=== PATIENT | female | born 1985 | race Caucasian/White ===

== ENCOUNTER 2018-10-30 20:20 | Emergency (ER) | payer BC ==
[2018-10-30] MEDS ORDERED: Sodium Chloride 0.9% 1,000 ML IV ONE (20:23)
[2018-10-30] MEDS ORDERED: Ondansetron 4 MG/2 ML SDV IVPUSH ONE (20:23)
--- NOTE | 2018-10-30 20:25 | EDM.PDOC ---
ED HPI GENERAL MEDICAL PROBLEM - General Stated Complaint: PT DIZZY AND LT SIDE OF BODY NUMB Time Seen by Provider: 10/30/18 20:24 Source of Information: Reports: Patient - History of Present Illness INITIAL COMMENTS - FREE TEXT/NARRATIVE: HISTORY AND PHYSICAL: History of present illness: [Patient with history of anxiety and panic presents with dizziness and numbness on left side, states these symptoms began acutely while she was working on her computer she began to feel dizzy with the dizziness she stood up he came more dizzy called caused her to stumble and fall to the left. She states at that point she had an episode of panic and presents as such incident was just prior to arrival She remains dizzy here in the ER but does not have any sensory deficit and full motor neurovascularly intact speech is clear in full sentences, dizziness is worsened by head movement both sitting up and specifically turning head to the left causes more dizziness, dizziness is better but not resolved with lying down. O fever nausea vomiting chills sweats no chest pain shortness breath headache or palpitation no bowel or urine symptoms ] Review of systems: As per history of present illness and below otherwise all systems reviewed and negative. Past medical history: As per history of present illness and as reviewed below otherwise noncontributory. Surgical history: As per history of present illness and as reviewed below otherwise noncontributory. Social history: No reported history of drug or alcohol abuse. Family history: As per history of present illness and as reviewed below otherwise noncontributory. Physical exam: HEENT: Atraumatic, normocephalic, pupils reactive, negative for conjunctival pallor or scleral icterus, mucous membranes moist, throat clear, neck supple, nontender, trachea midline. Lungs: Clear to auscultation, breath sounds equal bilaterally, chest nontender. Heart: S1S2, regular, negative for clicks, rubs, or JVD. Abdomen: Soft, nondistended, nontender. Negative for masses or hepatosplenomegaly. Negative for costovertebral tenderness. Pelvis: Stable nontender. Genitourinary: Deferred. Rectal: Deferred. Extremities: Atraumatic, negative for cords or calf pain. Neurovascular unremarkable. Neuro: Awake, alert, oriented. Cranial nerves II through XII unremarkable. Cerebellum unremarkable. Motor and sensory unremarkable throughout. Exam nonfocal. Diagnostics: [CBC CMP troponin UA hCG Chest [address] no contrast ] Therapeutics: [ liter normal saline bolus ] Zofran 8 mg IV Phenergan 25 mg IV Scopolamine transdermal #10 no refill Impression: Benign positional vertigo Panic history of baseline definitive disposition and diagnosis as appropriate pending reevaluation and review of above. headache Pain Score (Numeric/FACES): 3 - Related Data Allergies Allergy/AdvReac Type Severity Reaction Status Date / Time Iodinated Contrast- Oral and Allergy Other Verified 10/30/18 20:23 IV Dye silver Allergy Rash Verified 10/30/18 20:23 [From Tegaderm AG Mesh] Sulfa (Sulfonamide Allergy Rash Verified 10/30/18 20:23 Antibiotics) Home Meds: Home Meds ALPRAZolam [Xanax] 0.5 mg PO QID PRN 02/23/15 [History] FLUoxetine [PROzac] 60 mg PO DAILY 02/23/15 [History] traMADol [Ultram] 50 mg PO Q6H PRN 02/23/15 [History] Vortioxetine Hydrobromide [Trintellix] 1 tab PO DAILY 10/30/18 [History] tiZANidine [Zanaflex] 4 mg PO DAILY 10/30/18 [History] Past Medical History Other Neuro History: chronic fatigue syndrome - Past Surgical History Other HEENT Surgeries/Procedures: T&A Other Cardiovascular Surgeries/Procedures: "cardio thoracic surgery on collar bone" Other GI Surgeries/Procedures: lap band and removal Other Female Surgeries/Procedures: removal of one ovary with hyst, laproscopic for endometriosis ED ROS GENERAL - Review of Systems Review Of Systems: See Below ED EXAM, GENERAL - Physical Exam Exam: See Below Course - Vital Signs Last Recorded V/S: Last Vital Signs Temp 97.2 F 10/30/18 20:25 Pulse 81 10/30/18 20:25 Resp 18 10/30/18 20:25 BP 166/93 H 10/30/18 20:25 Pulse Ox 97 10/30/18 20:25 - Orders/Labs/Meds Orders: Active Orders 24 hr Category Date Time Status EKG Documentation Completion [RC] STAT Care 10/30/18 20:23 Active Head wo Cont [CT] Stat Exams 10/30/18 20:23 Taken Labs: Laboratory Tests 01/17/19 01/17/19 01/17/19 Range/Units 20:29 20:29 21:35 WBC 9.34 (4.0-11.0) K/uL RBC 4.78 (4.30-5.90) M/uL Hgb 14.5 (12.0-16.0) g/dL Hct 43.0 (36.0-46.0) % MCV 90.0 (80.0-98.0) fL MCH 30.3 (27.0-32.0) pg MCHC 33.7 (31.0-37.0) g/dL RDW Std Deviation 45.3 (28.0-62.0) fl RDW Coeff of Reshma 14 (11.0-15.0) % Plt Count 259 (150-400) K/uL MPV 10.70 (7.40-12.00) fL Neut % (Auto) 57.6 (48.0-80.0) % Lymph % (Auto) 35.2 (16.0-40.0) % [place] % (Auto) 5.8 (0.0-15.0) % Eos % (Auto) 1.2 (0.0-7.0) % Baso % (Auto) 0.2 (0.0-1.5) % Neut # (Auto) 5.4 (1.4-5.7) K/uL Lymph # (Auto) 3.3 H (0.6-2.4) K/uL [place] # (Auto) 0.5 (0.0-0.8) K/uL Eos # (Auto) 0.1 (0.0-0.7) K/uL Baso # (Auto) 0.0 (0.0-0.1) K/uL Nucleated RBC % 0.0 /100WBC Nucleated RBCs # 0 K/uL Sodium 141 (136-145) mmol/L Potassium 4.0 (3.5-5.1) mmol/L Chloride 107 (98-107) mmol/L Carbon Dioxide 29.0 (21.0-32.0) mmol/L BUN 16 (7.0-18.0) mg/dL Creatinine 0.8 (0.6-1.0) mg/dL Est Cr Clr Drug Dosing 106.14 mL/min Estimated GFR (MDRD) > 60.0 ml/min Glucose 104 (74-106) mg/dL Calcium 9.7 (8.5-10.1) mg/dL Total Bilirubin 0.6 (0.2-1.0) mg/dL AST 8 L (15-37) IU/L ALT 14 (14-63) IU/L Alkaline Phosphatase 101 (46-116) U/L Troponin I < 0.050 (0.000-0.056) ng/mL Total Protein 7.5 (6.4-8.2) g/dL Albumin 3.9 (3.4-5.0) g/dL Globulin 3.6 (2.6-4.0) g/dL Albumin/Globulin Ratio 1.1 (0.9-1.6) Urine Color YELLOW Urine Appearance CLEAR Urine pH 6.5 (5.0-8.0) Ur Specific [place] 1.015 (1.001-1.035) Urine Protein NEGATIVE (NEGATIVE) mg/dL Urine Glucose (UA) NEGATIVE (NEGATIVE) mg/dL Urine Ketones NEGATIVE (NEGATIVE) mg/dL Urine Occult Blood NEGATIVE (NEGATIVE) Urine Nitrite NEGATIVE (NEGATIVE) Urine Bilirubin NEGATIVE (NEGATIVE) Urine Urobilinogen 0.2 (<2.0) EU/dL Ur Leukocyte Esterase NEGATIVE (NEGATIVE) Urine HCG, Qual (NEGATIVE) Urine Opiates Screen (NEGATIVE) Ur Oxycodone Screen (NEGATIVE) Urine Methadone Screen (NEGATIVE) Ur Barbiturates Screen (NEGATIVE) Ur Phencyclidine Scrn (NEGATIVE) Ur Amphetamine Screen (NEGATIVE) U Methamphetamines Scrn (NEGATIVE) U Benzodiazepines Scrn (NEGATIVE) U Cocaine Metab Screen (NEGATIVE) U Marijuana (THC) Screen (NEGATIVE) Ethyl Alcohol < 3.0 mg/dL 10/30/18 10/30/18 Range/Units 21:35 21:35 WBC (4.0-11.0) K/uL RBC (4.30-5.90) M/uL Hgb (12.0-16.0) g/dL Hct (36.0-46.0) % MCV (80.0-98.0) fL MCH (27.0-32.0) pg MCHC (31.0-37.0) g/dL RDW Std Deviation (28.0-62.0) fl RDW Coeff of Reshma (11.0-15.0) % Plt Count (150-400) K/uL MPV (7.40-12.00) fL Neut % (Auto) (48.0-80.0) % Lymph % (Auto) (16.0-40.0) % [place] % (Auto) (0.0-15.0) % Eos % (Auto) (0.0-7.0) % Baso % (Auto) (0.0-1.5) % Neut # (Auto) (1.4-5.7) K/uL Lymph # (Auto) (0.6-2.4) K/uL [place] # (Auto) (0.0-0.8) K/uL Eos # (Auto) (0.0-0.7) K/uL Baso # (Auto) (0.0-0.1) K/uL Nucleated RBC % /100WBC Nucleated RBCs # K/uL Sodium (136-145) mmol/L Potassium (3.5-5.1) mmol/L Chloride (98-107) mmol/L Carbon Dioxide (21.0-32.0) mmol/L BUN (7.0-18.0) mg/dL Creatinine (0.6-1.0) mg/dL Est Cr Clr Drug Dosing mL/min Estimated GFR (MDRD) ml/min Glucose (74-106) mg/dL Calcium (8.5-10.1) mg/dL Total Bilirubin (0.2-1.0) mg/dL AST (15-37) IU/L ALT (14-63) IU/L Alkaline Phosphatase (46-116) U/L Troponin I (0.000-0.056) ng/mL Total Protein (6.4-8.2) g/dL Albumin (3.4-5.0) g/dL Globulin (2.6-4.0) g/dL Albumin/Globulin Ratio (0.9-1.6) Urine Color Urine Appearance Urine pH (5.0-8.0) Ur Specific [place] (1.001-1.035) Urine Protein (NEGATIVE) mg/dL Urine Glucose (UA) (NEGATIVE) mg/dL Urine Ketones (NEGATIVE) mg/dL Urine Occult Blood (NEGATIVE) Urine Nitrite (NEGATIVE) Urine Bilirubin (NEGATIVE) Urine Urobilinogen (<2.0) EU/dL Ur Leukocyte Esterase (NEGATIVE) Urine HCG, Qual NEGATIVE (NEGATIVE) Urine Opiates Screen NEGATIVE (NEGATIVE) Ur Oxycodone Screen NEGATIVE (NEGATIVE) Urine Methadone Screen NEGATIVE (NEGATIVE) Ur Barbiturates Screen NEGATIVE (NEGATIVE) Ur Phencyclidine Scrn NEGATIVE (NEGATIVE) Ur Amphetamine Screen NEGATIVE (NEGATIVE) U Methamphetamines Scrn NEGATIVE (NEGATIVE) U Benzodiazepines Scrn NEGATIVE (NEGATIVE) U Cocaine Metab Screen NEGATIVE (NEGATIVE) U Marijuana (THC) Screen NEGATIVE (NEGATIVE) Ethyl Alcohol mg/dL Meds: Medications Discontinued Medications Generic Name Dose Route Start Last Admin Trade Name Freq PRN Reason Stop Dose Admin Sodium Chloride 1,000 mls @ 999 mls/hr 10/30/18 20:23 10/30/18 20:34 Normal Saline IV 10/30/18 21:23 999 mls/hr STAT ONE Administration Ondansetron HCl 8 mg 10/30/18 20:23 10/30/18 20:34 Zofran IVPUSH 10/30/18 20:24 8 mg ONETIME ONE Administration Promethazine HCl 25 mg 10/30/18 22:09 10/30/18 22:20 Phenergan IM 10/30/18 22:10 25 mg ONETIME ONE Administration Departure - Departure Time of Disposition: 22:38 Disposition: Home, Self-Care 01 Condition: Good Clinical Impression: Benign positional vertigo - Discharge Information Additional Instructions: The following information is given to patients seen in the emergency department who are being discharged to home. This information is to outline your options for follow-up care. We provide all patients seen in our emergency department with a follow-up referral. The need for follow-up, as well as the timing and circumstances, are variable depending upon the specifics of your emergency department visit. If you don't have a primary care physician on staff, we will provide you with a referral. We always advise you to contact your personal physician following an emergency department visit to inform them of the circumstance of the visit and for follow-up with them and/or the need for any referrals to a consulting specialist. The emergency department will also refer you to a specialist when appropriate. This referral assures that you have the opportunity for follow-up care with a specialist. All of these measure are taken in an effort to provide you with optimal care, which includes your follow-up. Under all circumstances we always encourage you to contact your private physician who remains a resource for coordinating your care. When calling for follow-up care, please make the office aware that this follow-up is from your recent emergency room visit. If for any reason you are refused follow-up, please contact the [facility] emergency department at and asked to speak to the emergency department charge nurse. - My Orders Last 24 Hours: My Active Orders 10/30/18 20:23 EKG Documentation Completion [RC] STAT Head wo Cont [CT] Stat - Assessment/Plan Last 24 Hours: My Active Orders 10/30/18 20:23 EKG Documentation Completion [RC] STAT Head wo Cont [CT] Stat
[2018-10-30 21:14] LABS: CHLORIDE,CL 107 mmol/L (98-107); SODIUM,NA 141 mmol/L (136-145)
--- NOTE | 2018-10-30 21:50 | CR ---
INDICATION: dizziness TECHNIQUE: Chest 1 view. COMPARISON: 06/25/12 FINDINGS: Cardiovascular and mediastinum: Heart size and vasculature are normal in caliber and appearance. Mediastinum is within normal limits. Lungs and pleural space: Lungs are clear. No sign of infiltrate or mass. No sign of pleural effusion. No pneumothorax. Bones and soft tissues: No significant findings. IMPRESSION: Unremarkable chest. Dictated by: Benjamin Rutledge MD @ 10/30/2018 21:48:53 (Electronically Signed)
[2018-10-30] MEDS ORDERED: Promethazine 25 MG/ML SDV IM ONE (22:09)
[2018-10-30 22:45] VITALS: BP 137/95
--- NOTE | 2018-10-31 12:59 | CT ---
EXAM DATE: 10/30/18 PATIENT'S AGE: 33 Patient: GEMMA MARTINI Facility: [place], [place] Site Site : 1985 Study: CT Head [id number]/17/2019 9:39:07 PM Ordering Physician: PIETER BRADEN Final Report: INDICATION: PAIN CT HEAD WITHOUT CONTRAST TECHNIQUE: Multiple axial CT images were performed through the head without intravenous contrast administration. COMPARISON: No previous studies are currently available for comparison. FINDINGS: No acute intracranial hemorrhage is identified. No extra-axial collections are evident and there is no mass effect or midline shift. Ventricles are normal in size and configuration. Brain parenchyma appears normal with unremarkable zheng-white differentiation. Osseous structures are within normal limits and no fractures are seen. Included portions of the paranasal sinuses and mastoid air cells are normally aerated. IMPRESSION: Normal non-contrast head CT. MARYJO KATHLEEN MD [employer] Dictated by: Caleb Kathleen MD @ 10/30/2018 21:57:42 (Electronic Signature) Report Signed by Proxy. [facility]
== END 2018-10-30 22:51 | disposition home or self-care (01) ==
LOC: MW.ED 20:20
DX: H81.10 Benign paroxysmal vertigo, unspecified ear (principal); Z91.041 Radiographic dye allergy status; Z88.8 Allergy status to other drugs, medicaments and biological substances
CPT/HCPCS: 70450; 71045; 80053; 80305; 81003; 81025; 84484; 85025; 93005; 96361; 96372; 96374; 99285; G0480; J2405; J2550; J7040; 99283

== ENCOUNTER 2019-03-20 07:21 | Day surgery (SDC) | payer BC ==
[~2019-03-20 07:21] MED LIST: Lactated Ringers 1,000 ML IV SCH
[2019-03-20] MEDS ORDERED: Lidocaine 2% 5 ML SDV ONE (08:32)
[2019-03-20] MEDS ORDERED: Propofol 200 MG/20 ML SDV ONE (08:33)
[2019-03-20] MEDS ORDERED: Midazolam 1 MG/ML 2 ML SDV ONE (08:33)
[2019-03-20] MEDS ORDERED: fentaNYL 100 MCG/2 ML SDV ONE (08:33)
--- NOTE | 2019-03-20 09:04 | PCM.PREANE ---
Preanesthetic Assessment - Anesthesia/Transfusion/Family Hx Anesthesia History: Prior Anesthesia Without Reaction Family History of Anesthesia Reaction: No Transfusion History: Prior Transfusion Without Reaction Intubation History: Unknown - Review of Systems General: No Symptoms Pulmonary: No Symptoms Cardiovascular: No Symptoms Gastrointestinal: No Symptoms Neurological: No Symptoms Other: Reports: None - Physical Assessment O2 Sat by Pulse Oximetry: 95 Respiratory Rate: 15 Vital Signs: Last Vital Signs Temp 36.3 C 03/20/19 08:43 Pulse 83 03/20/19 08:43 Resp 15 03/20/19 08:43 BP 154/87 H 03/20/19 08:43 Pulse Ox 95 03/20/19 08:43 Height: 5 ft 10 in Weight: 112.945 kg ASA Class: 2 Mental Status: Alert & Oriented x3 Airway Class: Mallampati = 2 Dentition: Reports: Normal Dentition Thyro-Mental Finger Breadths: 3 Mouth Opening Finger Breadths: 3 ROM/Head Extension: Full Lungs: Clear to Auscultation, Normal Respiratory Effort Cardiovascular: Regular Rate, Regular Rhythm - Allergies Allergies/Adverse Reactions: Allergies Allergy/AdvReac Type Severity Reaction Status Date / Time Iodinated Contrast- Oral and Allergy Other Verified 03/18/19 09:46 IV Dye silver Allergy Rash Verified 03/18/19 09:46 [From Tegaderm AG Mesh] Sulfa (Sulfonamide Allergy Rash Verified 03/18/19 09:46 Antibiotics) - Blood Blood Available: No - Anesthesia Plan Pre-Op Medication Ordered: None - Acknowledgements Anesthesia Type Planned: General Anesthesia Pt an Appropriate Candidate for the Planned Anesthesia: Yes Alternatives and Risks of Anesthesia Discussed w Pt/Guardian: Yes Pt/Guardian Understands and Agrees with Anesthesia Plan: Yes PreAnesthesia Questionnaire HEENT History: Reports: Other (See Below) Other HEENT History: wears glasses/contacts Cardiovascular History: Reports: None Respiratory History: Reports: Asthma (mild), Sleep Apnea Other Respiratory History: has "mild" sleep apnea- used CPAP before bariatric surgery- not now Gastrointestinal History: Reports: GERD, Irritable Bowel Syndrome Genitourinary History: Reports: None 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: Reports: Endometriosis, Musculoskeletal History: Reports: Fibromyalgia Neurological History: Reports: Migraines, Other (See Below) Other Neuro History: chronic fatigue syndrome, hx of motion sickness Psychiatric History: Reports: Anxiety, Depression Endocrine/Metabolic History: Reports: Other (See Below) Other Endocrine/Metabolic History: has Hypoglycemia episodes now, had DM before loosing 60 pounds Hematologic History: Reports: Blood Transfusion(s) Immunologic History: Reports: None Oncologic (Cancer) History: Reports: None Dermatologic History: Reports: None - Infectious Disease History Infectious Disease History: Reports: None - Past Surgical History Head Surgeries/Procedures: Reports: None HEENT Surgical History: Reports: Adenoidectomy, Tonsillectomy Other Cardiovascular Surgeries/Procedures: "cardio thoracic surgery on collar bone" GI Surgical History: Reports: Bariatric Procedure, Cholecystectomy, Hernia, Abdominal, Hernia, Inguinal Other GI Surgeries/Procedures: lap band and removal Female Surgical History: Reports: Breast Biopsy, Section (x3), Hysterectomy Other Female Surgeries/Procedures: removal of one ovary with hyst, laproscopic for endometriosis, x3 Oncologic Surgical History: Reports: Lumpectomy - SUBSTANCE USE Smoking Status *Q: Never Smoker Recreational Drug Use History: Yes Recreational Drug Type: Reports: Marijuana/Hashish - HOME MEDS Home Medications: Home Meds FLUoxetine [PROzac] 20 mg PO DAILY 02/23/15 [History] traMADol [Ultram] 100 mg PO BID PRN 02/23/15 [History] tiZANidine [Zanaflex] 4 mg PO TID PRN 10/30/18 [History] Albuterol Sulfate [Proair Respiclick] 2 puff INH Q4H PRN 03/18/19 [History] Budesonide/Formoterol [Symbicort 160-4.5 MCG] 2 puff INH BID 03/18/19 [History] Vortioxetine Hydrobromide [Trintellix] 20 mg PO DAILY 03/18/19 [History] oxyCODONE 2.5 mg PO Q6H PRN 03/18/19 [History] - CURRENT (IN HOUSE) MEDS Current Meds: Current Medications Lactated Ringer's (Ringers, Lactated) 1,000 mls @ 125 mls/hr IV ASDIRECTED ADRIAN Last Admin: 03/20/19 08:56 Dose: 125 mls/hr Discontinued Medications Fentanyl (Sublimaze) Confirm Administered Dose 100 mcg .ROUTE .STK-MED ONE Stop: 03/20/19 08:34 Lidocaine (Xylocaine-Mpf 2%) Confirm Administered Dose 5 ml .ROUTE .STK-MED ONE Stop: 03/20/19 08:33 Midazolam HCl (Versed 1 Mg/Ml) Confirm Administered Dose 2 mg .ROUTE .STK-MED ONE Stop: 03/20/19 08:34 Propofol (Diprivan 20 Ml) Confirm Administered Dose 200 mg .ROUTE .STK-MED ONE Stop: 03/20/19 08:34
[2019-03-20] MEDS ORDERED: Bupivacaine 0.5% 10 ML SDV ONE (09:48)
[2019-03-20] MEDS ORDERED: Ondansetron 4 MG/2 ML SDV ONE (10:40)
[2019-03-20] MEDS ORDERED: Ketorolac 30 MG/ML SDV ONE ×2 (10:40)
[2019-03-20] MEDS ORDERED: fentaNYL 100 MCG/2 ML SDV IVPUSH PRN (10:47)
[2019-03-20] MEDS ORDERED: Morphine 10 MG/ML Syringe IVPUSH PRN (11:07)
[2019-03-20] MEDS ORDERED: Acetaminophen/HYDROcodone 325-5 MG Tab PO PRN (11:07)
[2019-03-20] MEDS ORDERED: Lactated Ringers 1,000 ML IV SCH (11:15)
--- NOTE | 2019-03-20 11:15 | PCM.OPNOTE ---
- General Post-Op/Procedure Note Date of Surgery/Procedure: 03/20/19 Operative Procedure(s): Incision and drainage of left upper arm abscess with removal of cyst wall Pre Op Diagnosis: Left posterior arm mass Post-Op Diagnosis: Infected inclusion cyst Anesthesia Technique: General LMA (ASA II) Primary Surgeon: Elvin Walker Fluid Replacement, Intraop: 700 EBL in mLs: 5 Surgical Drain/Tube Type: [place] Condition: Good Free Text/Narrative:: DICTATION [id number] CPT CODE 13686
--- NOTE | 2019-03-20 11:15 | PCM.POSTAN ---
POST ANESTHESIA ASSESSMENT - MENTAL STATUS Mental Status: Alert Free Text/Narrative:: Doing well - VITAL SIGNS Pulse Rate: 87 SaO2: 96 Resp Rate: 14 Blood Pressure: 124/69 - RESPIRATORY Respiratory Status: Respiratory Rate WNL - CARDIOVASCULAR CV Status: Pulse Rate WNL - GASTROINTESTINAL GI Status: No Symptoms - PAIN Pain Score: 2 (some soreness) - POST OP HYDRATION Hydration Status: Adequate & Stable (Adequate for transfer to [facility])
--- NOTE | 2019-03-20 11:19 | OR ---
SURGEON: Elvin Walker M.D. DATE OF PROCEDURE: 03/20/2019 OPERATION PERFORMED: Incision and drainage with excision of cyst wall, left upper arm abscess. PRIMARY SURGEON: Elvin Walker M.D. ANESTHESIA: General LMA. ASA CLASSIFICATION: II. PREOPERATIVE DIAGNOSIS: Enlarging symptomatic left upper arm mass. POSTOPERATIVE DIAGNOSIS: Infected inclusion cyst. ESTIMATED BLOOD LOSS: 5 mL. INTRAOPERATIVE FLUID REPLACEMENT: 700 mL of crystalloid. DESCRIPTION OF PROCEDURE: The patient was taken to the operating room and placed on the operating table in the supine position. Time-out was called for appropriate identification of the patient and procedure. Thigh-high TEDs and sequential compression boots were placed. Monitored anesthesia care was provided. MAC anesthesia was provided with placement of an LMA. The left upper extremity was then prepped with ChloraPrep solution. Sterile drapes were applied. The skin incision had been marked out and this was now infiltrated with 0.5% Marcaine solution. The skin was then incised directly over the mass and deepened through the subcutaneous tissue. We then entered an abscess cavity. Aerobic and anaerobic cultures and Gram stain were obtained. The dissection was then carried out removing the entire cyst wall. Once that was accomplished, the wound was inspected for hemostasis and bleeding sites were electrocoagulated. There was no other cyst wall present. The wound again was irrigated with sterile saline solution. A small Markel drain was brought to the operating table and placed into the center portion of the incision and secured to the skin with an 0 silk suture. The incision was then loosely closed with interrupted 3-0 nylon. The wound was then dressed with Telfa, 4x4s, and Mefix tape. Sponge, needle, and instrument counts were all correct. The patient tolerated the procedure well. Following emergence from anesthesia and extubation, she was taken to recovery room in stable condition. JOIE / OCTAVIANO /[id number]
--- NOTE | 2019-03-20 11:49 | PCM48HPAN ---
Post Anesthesia Note - EVALUATION WITHIN 48HRS OF ANESTHETIC Vital Signs in Normal Range: Yes Patient Participated in Evaluation: Yes Respiratory Function Stable: Yes Airway Patent: Yes Cardiovascular Function Stable: Yes Hydration Status Stable: Yes Pain Control Satisfactory: Yes Nausea and Vomiting Control Satisfactory: Yes Mental Status Recovered: Yes Pulse Rate: 87 Resp Rate: 14 Blood Pressure: 124/69 - COMMENTS/OBSERVATIONS Free Text/Narrative:: no anesthesia problems
[2019-03-20 12:17] VITALS: BP 127/75
--- NOTE | 2019-04-08 09:12 | OR ---
SURGEON: Elvin Walker M.D. DATE OF PROCEDURE: 03/20/2019 ADDENDUM: The size of the left upper arm lesion was 4 cm. JOIE / OCTAVIANO /[id number]
== END 2019-03-20 12:14 | disposition home or self-care (01) ==
LOC: MW.SDS 07:21
PROVIDERS: ATTEND Surgery
DX: L02.414 Cutaneous abscess of left upper limb (principal); L72.0 Epidermal cyst; E16.2 Hypoglycemia, unspecified; F41.9 Anxiety disorder, unspecified; F32.9 Major depressive disorder, single episode, unspecified; E66.9 Obesity, unspecified; J45.909 Unspecified asthma, uncomplicated; K21.9 Gastro-esophageal reflux disease without esophagitis; G43.909 Migraine, unspecified, not intractable, without status migrainosus; G47.33 Obstructive sleep apnea (adult) (pediatric); Z99.89 Dependence on other enabling machines and devices; Z91.041 Radiographic dye allergy status; Z88.2 Allergy status to sulfonamides; Z91.048 Other nonmedicinal substance allergy status; Z79.899 Other long term (current) drug therapy; Z98.890 Other specified postprocedural states; Z68.35 Body mass index [BMI] 35.0-35.9, adult
CPT/HCPCS: 11404; 12032; 87070; 87075; 87205; 88305; A9270; J1885; J2001; J2250; J2405; J2704; J3010; J3490; J7120; 00400

== ENCOUNTER 2021-01-12 01:58 | Emergency (ER) | payer OTHER, BC ==
[2021-01-12] MEDS ORDERED: Sodium Chloride 0.9% 10 ML Syringe FLUSH PRN (02:09)
[2021-01-12] MEDS ORDERED: Sodium Chloride 0.9% 2.5 ML Syringe FLUSH PRN (02:09)
[2021-01-12] MEDS ORDERED: Ondansetron 4 MG/2 ML SDV IVPUSH ONE (02:09)
[2021-01-12] MEDS ORDERED: Ketorolac 15 MG/ML SDV IVPUSH ONE (02:09)
[2021-01-12] MEDS ORDERED: Sodium Chloride 0.9% 1,000 ML IV ONE (02:09)
[2021-01-12] MEDS ORDERED: Prochlorperazine 10 MG in Sodium Chloride 0.9% 50 ML IV ONE (02:10)
[2021-01-12] MEDS ORDERED: diphenhydrAMINE 50 MG/ML SDV IVPUSH ONE (02:11)
[2021-01-12] MEDS ORDERED: Prochlorperazine 10 MG/2 ML SDV IVPUSH ONE (02:14)
[2021-01-12] MEDS ORDERED: Prochlorperazine 10 MG/2 ML SDV ONE (02:15)
[2021-01-12 04:01] VITALS: BP 121/71; PULSE 91
--- NOTE | 2021-01-12 04:13 | EDM.PDOC ---
ED HPI GENERAL MEDICAL PROBLEM - General Chief Complaint: Headache Stated Complaint: CIVID COMPLICATION Time Seen by Provider: 01/12/21 02:04 - History of Present Illness INITIAL COMMENTS - FREE TEXT/NARRATIVE: HISTORY AND PHYSICAL: History of present illness: Is a 35-year-old female with no significant past medical history who was recently diagnosed with coronavirus yesterday who presents ER today complaining of headache with nausea and decreased p.o. intake. Patient reports that she went to sleep yesterday at 7 PM and woke up at 10 PM. Patient reports that she has been unable to fall asleep since. Patient denies any recent dysuria, frequency, urgency, abdominal pain, chest pain. Patient reports that she does have a history of migraines and this feels as bad as her prior migraines. Patient reports nausea was decreased p.o. intake and 1 episode of emesis here in the ED. Patient denies any diarrhea. Patient has any double vision or blurred vision. Patient denies any weakness to her upper or lower extremities. Review of systems: As per history of present illness and below otherwise all systems reviewed and negative. Past medical history: As per history of present illness and as reviewed below otherwise noncontributory. Surgical history: As per history of present illness and as reviewed below otherwise noncontributory. Social history: No reported history of drug or alcohol abuse. Family history: As per history of present illness and as reviewed below otherwise noncontributory. Physical exam: This patient was seen and evaluated during the 2019 SARS-CoV-2 novel coronavirus pandemic period. Community viral transmission is ongoing at time of this encounter and the emergency department is operating under pandemic response procedures. Constitutional: Patient is oriented to person, place, and time. Appears well- developed and well-nourished. No distress. HEENT: Moist mucous membranes Head: Normocephalic and atraumatic Eyes: Right eye exhibits no discharge. Left eye exhibits no discharge. No scleral icterus Neck: Normal range of motion. No tracheal deviation present. Neck supple, no nuchal rigidity, no photophobia, no Kernig's sign or Brudzinski sign, patient does not present with signs or symptoms of be consistent with meningitis. Cardiovascular: Normal rate and regular rhythm. Pulmonary: Effort normal, no respiratory distress. Abd: Soft, nondistended, no rebound/guarding, no psoas or obturator signs, no tenderness at Mcberney's point, no West's sign. Pt does not present with an exam that would be consistent with an acute surgical abdomen at this time and to palpation Musculoskeletal: Normal range of motion Neurologic: Alert and oriented to person, place and time. Skin: [place], warm and dry. Psychiatric: Normal mood and affect. Behavior is normal. Judgment and thought content normal. Nursing note and vital signs have been reviewed Diagnostics: Labs reviewed from earlier today Therapeutics: Zofran, Compazine, Toradol, NSS x1 L, Benadryl Assessment and plan: 35-year-old female who presents ER today secondary to headache, nausea, vomiting. Patient was recently diagnosed with coronavirus and is scheduled to return to the hospital for an infusion for her coronavirus. On the ER, the patient was hydrated with NSS x1 L, Toradol, Benadryl, Compazine and Zofran feels 100% much more improved. Patient reports that she is ready to go home. Patient is nontoxic-appearing. Patient does not present with signs or symptoms that would be consistent with meningitis or an acute surgical abdomen. Patient be discharged home with a prescription for Zofran. Reassessment at the time of disposition demonstrates that the patient is in no acute distress. The patient has remained stable throughout the entire ED visit and is without objective evidence for acute process requiring urgent intervention or hospitalization. The patient is stable for discharge, counseling is provided as documented above, discussed symptomatic treatment and specific conditions for return. I have spoken with the patient/caregiver and discussed todays findings, in addition to providing specific details for the plan of care. Questions are answered and there is agreement with the plan. Definitive disposition and diagnosis as appropriate pending reevaluation and review of above. head Pain Score (Numeric/FACES): 8 - Related Data Allergies Allergy/AdvReac Type Severity Reaction Status Date / Time Iodinated Contrast Media Allergy Other Verified 01/12/21 02:12 silver Allergy Rash Verified 01/12/21 02:12 [From Tegaderm AG Mesh] Sulfa (Sulfonamide Allergy Rash Verified 01/12/21 02:12 Antibiotics) Home Meds: Home Meds FLUoxetine [PROzac] 20 mg PO DAILY 02/23/15 [History] traMADol [Ultram] 100 mg PO BID PRN 02/23/15 [History] tiZANidine [Zanaflex] 4 mg PO TID PRN 10/30/18 [History] Albuterol Sulfate [Proair Respiclick] 2 puff INH Q4H PRN 03/18/19 [History] Budesonide/Formoterol [Symbicort 160-4.5 MCG] 2 puff INH BID 03/18/19 [History] Vortioxetine Hydrobromide [Trintellix] 20 mg PO DAILY 03/18/19 [History] oxyCODONE 2.5 mg PO Q6H PRN 03/18/19 [History] Azithromycin 500 mg PO DAILY 01/12/21 [History] Past Medical History HEENT History: Reports: Other (See Below) Other HEENT History: wears glasses/contacts Cardiovascular History: Reports: None Respiratory History: Reports: Asthma, Sleep Apnea Other Respiratory History: has "mild" sleep apnea- used CPAP before bariatric surgery- not now Gastrointestinal History: Reports: GERD, Irritable Bowel Syndrome Genitourinary History: Reports: None 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, Musculoskeletal History: Reports: Fibromyalgia Neurological History: Reports: Migraines, Other (See Below) Other Neuro History: chronic fatigue syndrome, hx of motion sickness Psychiatric History: Reports: Anxiety, Depression Endocrine/Metabolic History: Reports: Other (See Below) Other Endocrine/Metabolic History: has Hypoglycemia episodes now, had DM before loosing 60 pounds Hematologic History: Reports: Blood Transfusion(s) Immunologic History: Reports: None Oncologic (Cancer) History: Reports: None Dermatologic History: Reports: None - Infectious Disease History Infectious Disease History: Reports: None - Past Surgical History Head Surgeries/Procedures: Reports: None HEENT Surgical History: Reports: Adenoidectomy, Tonsillectomy Other Cardiovascular Surgeries/Procedures: "cardio thoracic surgery on collar bone" GI Surgical History: Reports: Bariatric Procedure, Cholecystectomy, Hernia, Abdominal, Hernia, Inguinal Other GI Surgeries/Procedures: lap band and removal Female Surgical History: Reports: Breast Biopsy, Section, Hysterectomy Other Female Surgeries/Procedures: removal of one ovary with hyst, laproscopic for endometriosis, x3 Oncologic Surgical History: Reports: Lumpectomy Social & Family History - Family History Family Medical History: No Pertinent Family History - Tobacco Use Tobacco Use Status *Q: Never Tobacco User - Caffeine Use Caffeine Use: Reports: None - Recreational Drug Use Recreational Drug Use: No ED ROS GENERAL - Review of Systems Review Of Systems: See Below ED EXAM, GENERAL - Physical Exam Exam: See Below Course - Vital Signs Last Recorded V/S: Last Vital Signs Temp 99.9 F 01/12/21 02:05 Pulse 91 01/12/21 04:00 Resp 18 01/12/21 04:00 BP 121/71 01/12/21 04:00 Pulse Ox 95 01/12/21 04:00 - Orders/Labs/Meds Orders: Active Orders 24 hr Category Date Time Status Sodium Chloride 0.9% [Saline Flush] Med 01/12/21 02:09 Active 10 ml FLUSH ASDIRECTED PRN Sodium Chloride 0.9% [Saline Flush] Med 01/12/21 02:09 Active 2.5 ml FLUSH ASDIRECTED PRN Saline Lock Insert [OM.PC] Stat Oth 01/12/21 02:09 Ordered Medication Orders Sodium Chloride (Sodium Chloride 0.9% 10 Ml Syringe) 10 ml FLUSH ASDIRECTED PRN PRN Reason: Keep Vein Open Sodium Chloride (Sodium Chloride 0.9% 2.5 Ml Syringe) 2.5 ml FLUSH ASDIRECTED PRN PRN Reason: Keep Vein Open Meds: Medications Generic Name Dose Route Start Last Admin Trade Name Freq PRN Reason Stop Dose Admin Sodium Chloride 10 ml 01/12/21 02:09 Sodium Chloride 0.9% 10 Ml Syringe FLUSH ASDIRECTED PRN Keep Vein Open Sodium Chloride 2.5 ml 01/12/21 02:09 Sodium Chloride 0.9% 2.5 Ml Syringe FLUSH ASDIRECTED PRN Keep Vein Open Discontinued Medications Generic Name Dose Route Start Last Admin Trade Name Freq PRN Reason Stop Dose Admin Diphenhydramine HCl 50 mg 01/12/21 02:11 01/12/21 02:27 Diphenhydramine 50 Mg/Ml Sdv IVPUSH 01/12/21 02:12 50 mg ONETIME ONE Administration Prochlorperazine Edisylate 10 52 mls @ 150 mls/hr 01/12/21 02:10 01/12/21 02:38 mg/ Sodium Chloride IV 01/12/21 02:30 Not Given ONETIME ONE Sodium Chloride 1,000 mls @ 999 mls/hr 01/12/21 02:09 01/12/21 02:26 Normal Saline IV 01/12/21 03:09 999 mls/hr .Bolus ONE Administration Ketorolac Tromethamine 15 mg 01/12/21 02:09 01/12/21 02:27 Ketorolac 15 Mg/Ml Sdv IVPUSH 01/12/21 02:10 15 mg ONETIME ONE Administration Ondansetron HCl 4 mg 01/12/21 02:09 01/12/21 02:27 Ondansetron 4 Mg/2 Ml Sdv IVPUSH 01/12/21 02:10 4 mg ONETIME ONE Administration Prochlorperazine Edisylate 10 mg 01/12/21 02:14 01/12/21 02:27 Prochlorperazine 10 Mg/2 Ml Sdv IVPUSH 01/12/21 02:15 10 mg ONETIME ONE Administration Prochlorperazine Edisylate Confirm 01/12/21 02:15 01/12/21 02:28 Prochlorperazine 10 Mg/2 Ml Sdv Administered 01/12/21 02:16 Not Given Dose 10 mg .ROUTE .STK-MED ONE Departure - Departure Time of Disposition: 04:10 Disposition: Home, Self-Care 01 Condition: Good Clinical Impression: 2019 novel coronavirus disease (COVID-19), Headache, Migraine, Dehydration - Discharge Information Instructions: COVID-19 Frequently Asked Questions, COVID-19: How to Protect Yourself and Others - CDC, Prevent the Spread of COVID-19 if You Are Sick - CDC, Dehydration, Adult, [id number], General Headache Without Cause Referrals: PCP,None [Primary Care Provider] - Additional Instructions: You were seen and evaluated in the ER today secondary to your headache and nausea which are likely from your coronavirus infection. You have been given IV fluids as well as medication to assist you with your headache and nausea. You will be given a prescription for Zofran to assist you with your nausea. Please make an appointment to follow-up with your doctor in the next 2 to 3 days if your symptoms should persist. The following information is given to patients seen in the emergency department who are being discharged to home. This information is to outline your options for follow-up care. We provide all patients seen in our emergency department with a follow-up referral. The need for follow-up, as well as the timing and circumstances, are variable depending upon the specifics of your emergency department visit. If you don't have a primary care physician on staff, we will provide you with a referral. We always advise you to contact your personal physician following an emergency department visit to inform them of the circumstance of the visit and for follow-up with them and/or the need for any referrals to a consulting specialist. The emergency department will also refer you to a specialist when appropriate. This referral assures that you have the opportunity for follow-up care with a specialist. All of these measure are taken in an effort to provide you with optimal care, which includes your follow-up. Under all circumstances we always encourage you to contact your private physician who remains a resource for coordinating your care. When calling for follow-up care, please make the office aware that this follow-up is from your recent emergency room visit. If for any reason you are refused follow-up, please contact the [facility] Emergency Department at and asked to speak to the emergency department charge nurse. [facility] - Primary Care [address] [place] [address] [place] [address] Sepsis Event Note (ED) - Evaluation Sepsis Screening Result: No Definite Risk - Focused Exam Vital Signs: Vital Signs Temp Pulse Resp BP Pulse Ox 01/12/21 04:00 91 18 121/71 95 01/12/21 02:40 101 H 18 142/94 H 94 L 01/12/21 02:05 99.9 F 114 H 17 141/92 H 97 - My Orders Last 24 Hours: My Active Orders 01/12/21 02:09 Sodium Chloride 0.9% [Saline Flush] 10 ml FLUSH ASDIRECTED PRN Sodium Chloride 0.9% [Saline Flush] 2.5 ml FLUSH ASDIRECTED PRN Saline Lock Insert [OM.PC] Stat - Assessment/Plan Last 24 Hours: My Active Orders 01/12/21 02:09 Sodium Chloride 0.9% [Saline Flush] 10 ml FLUSH ASDIRECTED PRN Sodium Chloride 0.9% [Saline Flush] 2.5 ml FLUSH ASDIRECTED PRN Saline Lock Insert [OM.PC] Stat
== END 2021-01-12 04:30 | disposition home or self-care (01) ==
LOC: MW.ED 01:58
DX: U07.1 COVID-19 (principal); G43.909 Migraine, unspecified, not intractable, without status migrainosus; E86.0 Dehydration; J45.909 Unspecified asthma, uncomplicated; Z91.041 Radiographic dye allergy status; Z88.8 Allergy status to other drugs, medicaments and biological substances; Z88.2 Allergy status to sulfonamides; Z79.899 Other long term (current) drug therapy
CPT/HCPCS: 96374; 96375; 99284; J0780; J1200; J1885; J2405; J7030; 99283

== ENCOUNTER 2021-03-12 12:59 | Emergency (ER) | payer OTHER, BC ==
[2021-03-12] MEDS ORDERED: diphenhydrAMINE 50 MG/ML SDV ONE (13:51)
[2021-03-12] MEDS ORDERED: Metoclopramide 10 MG/2 ML SDV ONE (13:52)
[2021-03-12] MEDS ORDERED: Ketorolac 15 MG/ML SDV ONE (13:52)
--- NOTE | 2021-03-12 14:06 | EDM.PDOC ---
ED HPI GENERAL MEDICAL PROBLEM - General Stated Complaint: DROOPY FACE,HEADACHE,HIGH B/P Time Seen by Provider: 03/12/21 13:01 Source of Information: Reports: Patient History Limitations: Reports: No Limitations - History of Present Illness INITIAL COMMENTS - FREE TEXT/NARRATIVE: 35-year-old female past medical history migraine headaches presents for left- sided facial droop that she first noticed on waking up around 10 AM. Patient notes that symptoms have improved since this morning. She also notes a mild headache but notes that she has fibromyalgia and lives in pain every day. She denies any upper or lower extremity muscle weakness. No slurred speech or confusion. Not on any blood thinning medications. No history of trauma. Headache Pain Score (Numeric/FACES): 4 - Related Data Allergies Allergy/AdvReac Type Severity Reaction Status Date / Time Iodinated Contrast Media Allergy Other Verified 03/12/21 13:26 silver Allergy Rash Verified 03/12/21 13:26 [From [employer] AG Mesh] Sulfa (Sulfonamide Allergy Rash Verified 03/12/21 13:26 Antibiotics) Home Meds: Home Meds FLUoxetine [PROzac] 20 mg PO DAILY 02/23/15 [History] traMADol [Ultram] 100 mg PO BID PRN 02/23/15 [History] tiZANidine [Zanaflex] 4 mg PO TID PRN 10/30/18 [History] Vortioxetine Hydrobromide [Trintellix] 20 mg PO DAILY 03/18/19 [History] oxyCODONE 2.5 mg PO Q6H PRN 03/18/19 [History] Ondansetron [Zofran ODT] 4 mg PO Q6H PRN #12 tab.dis 01/12/21 [Rx] Acyclovir 400 mg PO 5XDAY 7 Days #35 tablet 03/12/21 [Rx] predniSONE 60 mg PO WITHBREAKFAST 7 Days #21 tab 03/12/21 [Rx] Past Medical History HEENT History: Reports: Other (See Below) Other HEENT History: wears glasses/contacts Cardiovascular History: Reports: None Respiratory History: Reports: Asthma, Sleep Apnea Other Respiratory History: has "mild" sleep apnea- used CPAP before bariatric surgery- not now Gastrointestinal History: Reports: GERD, Irritable Bowel Syndrome Genitourinary History: Reports: None 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, Musculoskeletal History: Reports: Fibromyalgia Neurological History: Reports: Migraines, Other (See Below) Other Neuro History: chronic fatigue syndrome, hx of motion sickness Psychiatric History: Reports: Anxiety, Depression Endocrine/Metabolic History: Reports: Other (See Below) Other Endocrine/Metabolic History: has Hypoglycemia episodes now, had DM before loosing 60 pounds Hematologic History: Reports: Blood Transfusion(s) Immunologic History: Reports: None Oncologic (Cancer) History: Reports: None Dermatologic History: Reports: None - Infectious Disease History Infectious Disease History: Reports: None - Past Surgical History Head Surgeries/Procedures: Reports: None HEENT Surgical History: Reports: Adenoidectomy, Tonsillectomy Other Cardiovascular Surgeries/Procedures: "cardio thoracic surgery on collar bone" GI Surgical History: Reports: Bariatric Procedure, Cholecystectomy, Hernia, Abdominal, Hernia, Inguinal Other GI Surgeries/Procedures: lap band and removal Female Surgical History: Reports: Breast Biopsy, Section, Hysterectomy Other Female Surgeries/Procedures: removal of one ovary with hyst, laproscopic for endometriosis, x3 Oncologic Surgical History: Reports: Lumpectomy Social & Family History - Family History Family Medical History: No Pertinent Family History - Caffeine Use Caffeine Use: Reports: None ED ROS GENERAL - Review of Systems Review Of Systems: Comprehensive ROS is negative, except as noted in HPI. ED EXAM, GENERAL - Physical Exam Exam: See Below Exam Limited By: No Limitations General Appearance: Alert, WD/WN, No Apparent Distress Eye Exam: Bilateral Eye: EOMI, PERRL Ears: Normal External Exam Throat/Mouth: Normal Voice, No Airway Compromise Head: Atraumatic, Normocephalic, Other (mild left sided decreased facial mm strength) Respiratory/Chest: No Respiratory Distress, Lungs Clear, Normal Breath Sounds, No Accessory Muscle Use Cardiovascular: Normal Peripheral Pulses, Regular Rate, Rhythm GI/Abdominal: Soft, Non-Tender Back Exam: Normal Inspection Extremities: Normal Inspection Neurological: Alert, Oriented, Normal Cognition, Normal Reflexes, No Motor/Sensory Deficits, Other (CN II-XII grossly intact b/l aside from mild facial droop on left side that is very difficult to appreciate on my exam but is noted by patient) Psychiatric: Normal Affect, Normal Mood Skin Exam: Warm, Dry, Intact, Normal Color #1 Interpretation EKG Date: 03/12/21 Time: 13:47 Rhythm: NSR Rate (Beats/Min): 87 [place]: Normal P-Wave: Present QRS: Normal ST-T: Normal QT: Normal WI/PQ Interval: 147 Comparison: NA - No Prior EKG EKG Interpretation Comments: normal EKG Course - Vital Signs Last Recorded V/S: Last Vital Signs Temp 98.2 F 03/12/21 13:28 Pulse 101 H 03/12/21 13:28 Resp 18 03/12/21 13:28 BP 152/95 H 03/12/21 13:28 Pulse Ox 97 03/12/21 13:28 - Orders/Labs/Meds Orders: Active Orders 24 hr Category Date Time Status EKG Documentation Completion [RC] STAT Care 03/12/21 13:05 Active Head wo Cont [CT] Stat Exams 03/12/21 13:04 Taken Sodium Chloride 0.9% [Normal Saline] 1,000 ml Med 03/12/21 14:23 Active IV .BOLUS Saline Lock Insert [OM.PC] Stat Oth 03/12/21 13:04 Ordered Medication Orders Sodium Chloride (Normal Saline) 1,000 mls @ 999 mls/hr IV .BOLUS ONE Stop: 03/12/21 15:23 Labs: Laboratory Tests 03/12/21 03/12/21 03/12/21 Range/Units 13:20 13:20 13:20 WBC 5.68 (4.0-11.0) K/uL RBC 5.00 (4.30-5.90) M/uL Hgb 15.0 (12.0-16.0) g/dL Hct 44.4 (36.0-46.0) % MCV 88.8 (80.0-98.0) fL MCH 30.0 (27.0-32.0) pg MCHC 33.8 (31.0-37.0) g/dL RDW Std Deviation 41.4 (28.0-62.0) fl RDW Coeff of Reshma 13 (11.0-15.0) % Plt Count 282 (150-400) K/uL MPV 11.20 (7.40-12.00) fL Neut % (Auto) 55.5 (48.0-80.0) % Lymph % (Auto) 35.9 (16.0-40.0) % [place] % (Auto) 6.9 (0.0-15.0) % Eos % (Auto) 1.2 (0.0-7.0) % Baso % (Auto) 0.5 (0.0-1.5) % Neut # (Auto) 3.2 (1.4-5.7) K/uL Lymph # (Auto) 2.0 (0.6-2.4) K/uL [place] # (Auto) 0.4 (0.0-0.8) K/uL Eos # (Auto) 0.1 (0.0-0.7) K/uL Baso # (Auto) 0.0 (0.0-0.1) K/uL Nucleated RBC % 0.0 /100WBC Nucleated RBCs # 0 K/uL INR 1.00 APTT 26.3 (18.6-31.3) SEC Sodium 137 (136-145) mmol/L Potassium 3.7 (3.5-5.1) mmol/L Chloride 103 (98-107) mmol/L Carbon Dioxide 23.5 (21.0-32.0) mmol/L BUN 7 (7.0-18.0) mg/dL Creatinine 0.8 (0.6-1.0) mg/dL Est Cr Clr Drug Dosing 104.12 mL/min Estimated GFR (MDRD) > 60.0 ml/min Glucose 148 H (74-106) mg/dL Calcium 9.3 (8.5-10.1) mg/dL Total Bilirubin 1.2 H (0.2-1.0) mg/dL AST 18 (15-37) IU/L ALT 27 (14-63) IU/L Alkaline Phosphatase 99 (46-116) U/L Troponin I < 0.050 (0.000-0.056) ng/mL Total Protein 7.5 (6.4-8.2) g/dL Albumin 3.9 (3.4-5.0) g/dL Globulin 3.6 (2.6-4.0) g/dL Albumin/Globulin Ratio 1.1 (0.9-1.6) Meds: Medications Generic Name Dose Route Start Last Admin Trade Name Freq PRN Reason Stop Dose Admin Sodium Chloride 1,000 mls @ 999 mls/hr 03/12/21 14:23 Normal Saline IV 03/12/21 15:23 .BOLUS ONE Discontinued Medications Generic Name Dose Route Start Last Admin Trade Name Marlen PRN Reason Stop Dose Admin Diphenhydramine HCl Confirm 03/12/21 13:51 03/12/21 14:43 Diphenhydramine 50 Mg/Ml Sdv Administered 03/12/21 13:52 Not Given Dose 50 mg .ROUTE .STK-MED ONE Diphenhydramine HCl 50 mg 03/12/21 14:21 Diphenhydramine 50 Mg/Ml Sdv IVPUSH 03/12/21 14:22 ONETIME ONE Ketorolac Tromethamine Confirm 03/12/21 13:52 03/12/21 14:43 Ketorolac 15 Mg/Ml Sdv Administered 03/12/21 13:53 Not Given Dose 15 mg .ROUTE .STK-MED ONE Ketorolac Tromethamine 15 mg 03/12/21 14:21 Ketorolac 15 Mg/Ml Sdv IVPUSH 03/12/21 14:22 STAT STA Metoclopramide HCl Confirm 03/12/21 13:52 03/12/21 14:43 Metoclopramide 10 Mg/2 Ml Sdv Administered 03/12/21 13:53 Not Given Dose 10 mg .ROUTE .STK-MED ONE Metoclopramide HCl 10 mg 03/12/21 14:21 Metoclopramide 10 Mg/2 Ml Sdv IVPUSH 03/12/21 14:22 ONETIME ONE - Re-Assessments/Exams Free Text/Narrative Re-Assessment/Exam: 03/12/21 13:11 Low suspicion CVA. 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 Will get head CT and labs. Will follow up results and disposition accordingly. 03/12/21 13:[address] is unremarkable. 03/12/21 14:50 Labs are all normal. Again I have a very low suspicion for CVA. If it is Claros's palsy is very subtle. I had a long discussion with patient of complex migraine versus possible early Claros's palsy. Through shared decision making we will treat as Claros's palsy with steroids and acyclovir. Departure - Departure Time of Disposition: 14:51 Disposition: Home, Self-Care 01 Condition: Good Clinical Impression: Claros's palsy - Discharge Information Prescriptions: Acyclovir 400 mg PO 5XDAY 7 Days #35 tablet predniSONE 60 mg PO WITHBREAKFAST 7 Days #21 tab Instructions: Claros Palsy, Adult Additional Instructions: The following information is given to patients seen in the emergency department who are being discharged to home. This information is to outline your options for follow-up care. We provide all patients seen in our emergency department with a follow-up referral. The need for follow-up, as well as the timing and circumstances, are variable depending upon the specifics of your emergency department visit. If you don't have a primary care physician on staff, we will provide you with a referral. We always advise you to contact your personal physician following an emergency department visit to inform them of the circumstance of the visit and for follow-up with them and/or the need for any referrals to a consulting specialist. The emergency department will also refer you to a specialist when appropriate. This referral assures that you have the opportunity for follow-up care with a specialist. All of these measure are taken in an effort to provide you with optimal care, which includes your follow-up. Under all circumstances we always encourage you to contact your private physi mary who remains a resource for coordinating your care. When calling for follow- up care, please make the office aware that this follow-up is from your recent emergency room visit. If for any reason you are refused follow-up, please contact the [facility] Emergency Department at and asked to speak to the emergency department charge nurse. Please follow up with your primary care physician. If you do not have a primary care physician, see below: [facility] [address] [place] [id number] My [facility] [address] [place] [address] [facility] [address] [place] [id number] Sepsis Event Note (ED) - Focused Exam Vital Signs: Vital Signs Temp Pulse Resp BP Pulse Ox 03/12/21 13:28 98.2 F 101 H 18 152/95 H 97 - My Orders Last 24 Hours: My Active Orders 03/12/21 13:04 Head wo Cont [CT] Stat Saline Lock Insert [OM.PC] Stat 03/12/21 13:05 EKG Documentation Completion [RC] STAT 03/12/21 14:23 Sodium Chloride 0.9% [Normal Saline] 1,000 ml IV .BOLUS - Assessment/Plan Last 24 Hours: My Active Orders 03/12/21 13:04 Head wo Cont [CT] Stat Saline Lock Insert [OM.PC] Stat 03/12/21 13:05 EKG Documentation Completion [RC] STAT 03/12/21 14:23 Sodium Chloride 0.9% [Normal Saline] 1,000 ml IV .BOLUS
[2021-03-12] MEDS ORDERED: Ketorolac 15 MG/ML SDV IVPUSH STA (14:21)
[2021-03-12] MEDS ORDERED: diphenhydrAMINE 50 MG/ML SDV IVPUSH ONE (14:21)
[2021-03-12] MEDS ORDERED: Metoclopramide 10 MG/2 ML SDV IVPUSH ONE (14:21)
[2021-03-12] MEDS ORDERED: Sodium Chloride 0.9% 1,000 ML IV ONE (14:23)
[2021-03-12 14:42] LABS: BLOOD UREA NITROGEN,BUN 7 mg/dL (7.0-18.0); CARBON DIOXIDE,CO2 23.5 mmol/L (21.0-32.0); CHLORIDE,CL 103 mmol/L (98-107); GLUCOSE RANDOM 148 mg/dL (74-106); POTASSIUM,K 3.7 mmol/L (3.5-5.1); SODIUM,NA 137 mmol/L (136-145)
[2021-03-12 21:16] VITALS: BP 146/87; PULSE 77
--- NOTE | 2021-03-14 13:04 | CT ---
EXAM DATE: 03/12/21 PATIENT'S AGE: 35 Patient: GEMMA MARTINI [facility] Site : 1985 Study: CT-Head STROKE PROTOCOL -03/12/2021 1:25:44 PM Ordering Physician: Final Report: Indication: Left facial droop Technique: Volumetric multidetector CT images of the head were obtained without the administration of low osmolar intravenous contrast. Comparison: CT head October 30, 2018 Findings: There is no intra-axial or extra-axial fluid collection. There is no mass effect or midline shift. The ventricles and sulci are normal in size and position for age. The brain parenchyma is grossly preserved in attenuation and rodriguez-white differentiation. The orbits and their contents are grossly within normal limits. The bony calvarium is grossly intact. The paranasal sinuses are clear. The mastoid air cells are well aerated. Impression: No acute intracranial abnormality. Findings faxed to an confirmed received by Dr. Srinivasan at 1:41 p.m. March 12, [address] note that all CT scans at this facility use dose modulation, iterative reconstruction, and/or weight-based dosing when appropriate to reduce radiation dose to as low as reasonably achievable. Dictated by Bladimir Wilson MD @ 03/12/2021 1:43:37 PM Signed by: Bladimir Wilson MD @03/12/2021 1:43:37 PM (Electronic Signature) Report Signed by Proxy. [facility]
== END 2021-03-12 15:08 | disposition home or self-care (01) ==
LOC: MW.ED 12:59
DX: G51.0 Bell's palsy (principal); Z88.2 Allergy status to sulfonamides; Z91.048 Other nonmedicinal substance allergy status; Z91.041 Radiographic dye allergy status
CPT/HCPCS: 36415; 70450; 80053; 84484; 85025; 85610; 85730; 93005; 96374; 96375; 99284; J1200; J1885; J2765; J7030; 93010

== ENCOUNTER 2024-02-05 17:29 | Emergency (ER) | payer BC ==
[2024-02-05 18:00] LABS: APPEARANCE,URINE SLT CLOUDY; BILIRUBIN,URINE NEGATIVE (NEGATIVE); COLOR,URINE YELLOW; GLUCOSE,URINE NEGATIVE (NEGATIVE); KETONES,URINE TRACE mg/dL (NEGATIVE); LEUKOCYTE ESTERASE,URINE NEGATIVE (NEGATIVE); NITRITE,URINE NEGATIVE (NEGATIVE); OCCULT BLOOD,URINE NEGATIVE (NEGATIVE); PROTEIN,URINE NEGATIVE (NEGATIVE)
[2024-02-05 18:31] LABS: BASOPHILS ABSOLUTE AUTO 0.02 K/uL (0.00-0.20); BASOPHILS PERCENT AUTO 0.3 % (0.0-1.0); EOSINOPHILS PERCENT AUTO 3.3 % (0.0-6.0); HEMATOCRIT 37.1 % (37.0-47.0); HEMOGLOBIN 12.9 g/dL (12.0-16.0); IMMATURE GRAN ABSOLUTE AUTO 0.01 K/uL (0.00-0.05); IMMATURE GRAN PERCENT AUTO 0.2 % (0.0-0.4); LYMPHOCYTES ABSOLUTE AUTO 2.15 K/uL (1.00-4.80); LYMPHOCYTES PERCENT AUTO 35.5 % (24.0-44.0); MEAN CORPUSCULAR HEMOGLOBIN 29.7 pg (28.0-32.0); MEAN CORPUSCULAR HGB CONC 34.8 g/dL (32.0-36.0); MEAN CORPUSCULAR VOLUME 85.3 fL (83.0-99.0); MEAN PLATELET VOLUME 10.7 fL (9.4-12.3); MONOCYTES ABSOLUTE AUTO 0.36 K/uL (0.00-0.80); MONOCYTES PERCENT AUTO 5.9 % (0.0-8.0); NEUTROPHILS ABSOLUTE AUTO 3.32 K/uL (1.80-7.70); NEUTROPHILS PERCENT AUTO 54.8 % (41.0-71.0); PLATELET COUNT,PLT 209 K/uL (150-400); RED BLOOD CELL COUNT 4.35 M/uL (4.10-5.30); WHITE BLOOD CELL COUNT,WBC 6.06 K/uL (3.9-11.3)
[2024-02-05 19:04] LABS: A/G RATIO 1.1 (0.9-1.6); ALBUMIN 3.5 g/dL (3.4-5.0); BILIRUBIN TOTAL 1.5 mg/dL (0.2-1.0); CALCIUM 8.7 mg/dL (8.5-10.1); CARBON DIOXIDE,CO2 24.7 mmol/L (21.0-32.0); CREATININE 0.6 mg/dL (0.6-1.0); EST CRCL DRUG DOSING (CG) 134.78 mL/min; POTASSIUM,K 3.5 mmol/L (3.5-5.1); PROTEIN TOTAL,TP 6.8 g/dL (6.4-8.2)
[2024-02-05] MEDS: Acetaminophen/HYDROcodone 325-5 MG Tab PO ONE (20:48)
[2024-02-05 21:25] VITALS: BP 130/78; PULSE 78
== END 2024-02-05 20:55 | disposition home or self-care (01) ==
LOC: MW.ED 17:29
DX: R07.81 Pleurodynia (principal); I10 Essential (primary) hypertension; Z75.8 Other problems related to medical facilities and other health care; Z91.041 Radiographic dye allergy status; Z88.2 Allergy status to sulfonamides; Z91.048 Other nonmedicinal substance allergy status; Z79.899 Other long term (current) drug therapy; Z86.16 Personal history of COVID-19; Z90.49 Acquired absence of other specified parts of digestive tract; Z90.710 Acquired absence of both cervix and uterus
CPT/HCPCS: 36415; 71101; 80053; 81003; 81025; 83690; 85025; 99284; A9270